=== PATIENT | female | born 1970 | race Caucasian/White ===

== ENCOUNTER 2017-05-09 08:03 | Emergency (ER) | payer MEDICAID ==
[~2017-05-09] VITALS: Ht 165.1 cm; Wt 65.5 kg
[~2017-05-09 08:03] MED LIST: AMO500 PO; CEPH-443 PO; CIPR-193 PO; MEDR10TA2 PO; PHEN-538 PO
[2017-05-09 08:07] VITALS: Ht 165.1 cm; Wt 65.5 kg
[2017-05-09 08:56] LABS: URINE BLOOD (Dip) POC 2+ (NEGATIVE)
--- NOTE | 2017-05-09 09:40 | ERD ---
ER Documentation Chief Complaint Date/Time DATE: 05/09/17 TIME: 09:39 Chief Complaint PAIN WITH URINATION, STARTED YESTURDAY HPI This a 47-year-old female who complains of burning and pain with urination that started yesterday. States she is taking AZO. Denies any hematuria, fevers or chills, back pain. ROS All systems reviewed and are negative except as per history of present illness. Medications Home Meds Active Scripts Acetaminophen* (Tylophen*) 500 Mg Capsule, 1 CAP PO Q6H Y for PAIN AND OR ELEVATED TEMP, #30 CAP Prov:LESLY ALICIA PA-C 05/09/17 Cephalexin* (Keflex*) 500 Mg Capsule, 500 MG PO QID for 7 Days, CAP Prov:LESLY ALICIA PA-C 05/09/17 Amoxicillin* (Amoxicillin*) 500 Mg Cap, 500 MG PO TID for 10 Days, CAP Prov:JOE PINEDA DO 11/13/16 Medroxyprogesterone Acetate* (Provera*) 10 Mg Tablet, 10 MG PO DAILY for 5 Days , TAB Prov:ALEKS MATA NP 08/08/16 Ciprofloxacin Hcl* (Ciprofloxacin Hcl*) 250 Mg Tablet, 250 MG PO BID for 3 Days , #6 TAB Prov:ALEKS MATA NP 08/08/16 Phenazopyridine Hcl* (Pyridium*) 200 Mg Tab, 200 MG PO TID Y for URINARY PAIN, # 6 TAB Prov:JCARLOS HENRY MD 08/02/16 Cephalexin* (Keflex*) 500 Mg Capsule, 500 MG PO QID for 5 Days, CAP Prov:JCARLOS HENRY MD 08/02/16 Allergies Allergies: Coded Allergies: No Known Allergy (Unverified , 02/25/15) PMhx/Soc Medical and Surgical Hx: pt denies Medical Hx History of Surgery: Yes (TUBAL CAUTERIZATION ) Anesthesia Reaction: No Hx Neurological Disorder: No Hx Respiratory Disorders: No Hx Cardiac Disorders: No Hx Psychiatric Problems: No Hx Miscellaneous Medical Probl: No Hx Alcohol Use: No Hx Substance Use: No Hx Tobacco Use: Yes (4 CIG/DAY) Smoking Status: Current every day smoker Physical Exam Vitals Vital Signs Date Time Temp Pulse Resp B/P Pulse Ox O2 Delivery O2 Flow Rate FiO2 6/19/17 08:07 98.2 76 16 111/53 98 Physical Exam Const: No acute distress Head: Atraumatic Eyes: Normal Conjunctiva ENT: Normal External Ears, Nose and Mouth. Neck: Full range of motion..~ No meningismus. Resp: Clear to auscultation bilaterally Cardio: Regular rate and rhythm, no murmurs Abd: Soft, suprapubic tenderness, non distended. Normal bowel sounds. No right lower quadrant pain. No left lower quadrant pain. Skin: No petechiae or rashes Back: No midline or flank tenderness. No CVA tenderness. Ext: No cyanosis, or edema Neur: Awake and alert Psych: Normal Mood and Affect Results 24 hrs Laboratory Tests Test 05/09/17 08:59 Bedside Urine pH (LAB) 5.0 Bedside Urine Protein (LAB) 2+ Bedside Urine Glucose (UA) 0.1% Bedside Urine Ketones (LAB) Negative Bedside Urine Blood 2+ Bedside Urine Nitrite (LAB) Positive Bedside Urine Leukocyte Esterase (L 3+ Procedures/MDM This 47-year-old female presents to the emergency department today complaining of burning and pain with urination that started yesterday. I did obtain a UA UA shows 3+ leukocyte Estrace 2+ blood and positive nitrite. Patient symptoms at this time is consistent with urinary tract infection. She is afebrile and otherwise well-appearing. She has no CVA tenderness. Low suspicion for pyelonephritis. Do not feel the patient requires further workup or imaging at this time. Patient will given a prescription for Keflex and Tylenol At this time the patient is stable for discharge and outpatient management. Patient should follow up with their PCP in the next 1-2 days. They may return to the emergency department sooner for any persistent or worsening of symptoms. Patient understood and agreed with the plan. Departure Diagnosis: Primary Impression: UTI (urinary tract infection) Urinary tract infection type: site unspecified Hematuria presence: with hematuria Qualified Code: N39.0 - Urinary tract infection with hematuria, site unspecified Condition: LESLY Garcia PA-C May 09, 2017 09:40
[2017-05-09] MEDS ORDERED: ACET500C5 PO (09:41)
[2017-05-09] MEDS ORDERED: CEPH-443 PO (09:41)
== END 2017-05-09 09:53 | disposition home or self-care (01) ==
LOC: FTE 08:03
DX: N39.0 Urinary tract infection, site not specified (principal); F17.210 Nicotine dependence, cigarettes, uncomplicated
CPT/HCPCS: 81003; Z7502; 99283

== ENCOUNTER 2017-05-20 09:58 | Emergency (ER) | payer MEDICAID ==
[~2017-05-20] VITALS: Wt 65.5 kg
[~2017-05-20 09:58] MED LIST changes: +ACET500C5 PO
[2017-05-20 11:43] LABS: ADD UMIC NO; UR ASCORBIC ACID 40 mg/dL (NEGATIVE); UR BILIRUBIN (Dip) NEGATIVE (NEGATIVE); UR BLOOD (Dip) NEGATIVE (NEGATIVE); UR CLARITY SLIGHTLY CLOUDY (CLEAR); UR COLOR YELLOW (YELLOW); UR GLUCOSE (Dip) NEGATIVE (NEGATIVE); UR KETONES (Dip) NEGATIVE (NEGATIVE); UR LEUKOCYTE ESTERASE (Dip) NEGATIVE Leu/ul (NEGATIVE); UR MUCUS FEW /HPF (NONE SEEN); UR NITRITE (Dip) NEGATIVE (NEGATIVE); UR RBC 1 /HPF (0-5); UR SPECIFIC GRAVITY (Dip) 1.026 (1.003-1.030); UR SQUAMOUS EPITHELIAL CELL FEW /HPF (FEW); UR TOTAL PROTEIN (Dip) NEGATIVE (NEGATIVE); UR UROBILINOGEN (Dip) NEGATIVE (NEGATIVE)
[2017-05-20] MEDS ORDERED: CIPR500T4 PO (11:48)
[2017-05-20] MEDS ORDERED: PHEN-537 PO (11:48)
--- NOTE | 2017-05-20 11:54 | ERD ---
ER Documentation Chief Complaint Date/Time DATE: 05/20/17 TIME: 11:52 Chief Complaint PAIN WITH URINATION HPI Patient is a 47-year-old female who presents with dysuria and increased urinary frequency for the past 5 days. She states she recently completed treatment with Keflex for a UTI and she last took a Keflex about 2 weeks ago. She denies any fever. Denies any nausea or vomiting or diarrhea. She denies any chest pain or shortness of breath. She denies any change with food. Denies any vaginal bleeding. ROS All systems reviewed and are negative except as per history of present illness. Medications Home Meds Active Scripts Phenazopyridine Hcl* (Pyridium*) 100 Mg Tab, 100 MG PO TID Y for URINARY PAIN, # 8 TAB Prov:DANIELA SEPULVEDA PA-C 05/20/17 Ciprofloxacin Hcl* (Ciprofloxacin Hcl*) 500 Mg Tablet, 500 MG PO BID for 7 Days , TAB Prov:DANIELA SEPULVEDA PA-C 05/20/17 Acetaminophen* (Tylophen*) 500 Mg Capsule, 1 CAP PO Q6H Y for PAIN AND OR ELEVATED TEMP, #30 CAP Prov:LESLY ALICIA PA-C 05/09/17 Cephalexin* (Keflex*) 500 Mg Capsule, 500 MG PO QID for 7 Days, CAP Prov:LESLY ALICIA PA-C 05/09/17 Amoxicillin* (Amoxicillin*) 500 Mg Cap, 500 MG PO TID for 10 Days, CAP Prov:OJE PINEDA DO 11/13/16 Medroxyprogesterone Acetate* (Provera*) 10 Mg Tablet, 10 MG PO DAILY for 5 Days , TAB Prov:ALEKS MATA NP 08/08/16 Ciprofloxacin Hcl* (Ciprofloxacin Hcl*) 250 Mg Tablet, 250 MG PO BID for 3 Days , #6 TAB Prov:ALEKS MATA NP 08/08/16 Phenazopyridine Hcl* (Pyridium*) 200 Mg Tab, 200 MG PO TID Y for URINARY PAIN, # 6 TAB Prov:JCARLOS HENRY MD 08/02/16 Cephalexin* (Keflex*) 500 Mg Capsule, 500 MG PO QID for 5 Days, CAP Prov:JCARLOS HENRY MD 08/02/16 Allergies Allergies: Coded Allergies: No Known Allergy (Unverified , 02/25/15) PMhx/Soc History of Surgery: Yes (TUBAL CAUTERIZATION ) Anesthesia Reaction: No Hx Neurological Disorder: No Hx Respiratory Disorders: No Hx Cardiac Disorders: No Hx Psychiatric Problems: No Hx Miscellaneous Medical Probl: No Hx Alcohol Use: No Hx Substance Use: No Hx Tobacco Use: Yes (4 CIG/DAY) Smoking Status: Current every day smoker FmHx Family History: No diabetes Physical Exam Vitals Vital Signs Date Time Temp Pulse Resp B/P Pulse Ox O2 Delivery O2 Flow Rate FiO2 05/20/17 10:01 97.5 68 17 114/56 99 Physical Exam General: well developed, well nourished, alert, nontoxic, no distress Head: normocephalic, atraumatic Neck: Supple, nontender, no lymphadenopathy, no midline tenderness Respiratory: Clear to auscaultation bilaterally, speaks in full sentences, no use of accesory muscles or labored breathing, no rales, ronchi, or wheezing Cardiovascular: RRR, No murmurs GI: soft, non tender, non distended, negative murphys sign, negative mcburneys point tenderness, no cva tenderness bilaterally, no rebound or guarding Back: no midline tenderness, no step offs or bony abnormalities, sensation to light touch in tact Results 24 hrs Laboratory Tests Test 05/20/17 10:28 Urine Color YELLOW Urine Clarity SLIGHTLY CLOUDY Urine pH 6.0 Urine Specific [place] 1.026 Urine Ketones NEGATIVEmg/dL Urine Nitrite NEGATIVEmg/dL Urine Bilirubin NEGATIVEmg/dL Urine Urobilinogen NEGATIVEmg/dL Urine Leukocyte Esterase NEGATIVELeu/ul Urine Microscopic RBC 1/HPF Urine Microscopic WBC 2/HPF Urine Squamous Epithelial Cells FEW/HPF Urine Calcium Oxalate Crystals MANY/HPF Urine Mucus FEW/HPF Urine Hemoglobin NEGATIVEmg/dL Urine Glucose NEGATIVEmg/dL Urine Total Protein NEGATIVEmg/dl Procedures/MDM Patient has symptoms consistent with urinary tract infection. I doubt pyelonephritis or kidney stones. She is well-appearing in no distress. Her urine was sent for culture. She recently had a UTI was treated with Keflex but is unclear whether he got better or still the same UTI this did not completely improve and therefore I will put her on Cipro and I also gave her Pyridium. Recommended this patient follow up with her primary care doctor within 48 hours or return to the emergency room for any worsening of symptoms. However this time I do believe there is suitable for outpatient management. I answered all their questions and they agreed with the plan and were discharged home. Departure Diagnosis: Primary Impression: Dysuria Condition: Stable Patient Instructions: Dysuria Additional Instructions: Call your primary care doctor TOMORROW for an appointment during the next 1-2 days.See the doctor sooner or return here if your condition worsens before your appointment time. DANIELA SEPULVEDA PA-C May 20, 2017 11:54
== END 2017-05-20 12:04 | disposition home or self-care (01) ==
LOC: FTE 09:58
DX: R30.0 Dysuria (principal); F17.210 Nicotine dependence, cigarettes, uncomplicated
CPT/HCPCS: 81001; 87086; Z7502; 81003; 99283

== ENCOUNTER 2017-05-23 12:21 | Emergency (ER) | payer MEDICAID ==
[~2017-05-23] VITALS: Ht 157.5 cm; Wt 67.0 kg
[~2017-05-23 12:21] MED LIST changes: +CIPR500T4 PO; +PHEN-537 PO
[2017-05-23 12:32] VITALS: Ht 157.5 cm; Wt 67.0 kg
[2017-05-23 14:06] LABS: ADD UMIC YES; UR ASCORBIC ACID NEGATIVE (NEGATIVE); UR BILIRUBIN (Dip) NEGATIVE (NEGATIVE); UR BLOOD (Dip) 1+ mg/dL (NEGATIVE); UR CLARITY CLEAR (CLEAR); UR COLOR YELLOW (YELLOW); UR GLUCOSE (Dip) NEGATIVE (NEGATIVE); UR KETONES (Dip) NEGATIVE (NEGATIVE); UR LEUKOCYTE ESTERASE (Dip) NEGATIVE Leu/ul (NEGATIVE); UR NITRITE (Dip) NEGATIVE (NEGATIVE); UR RBC 0 /HPF (0-5); UR SPECIFIC GRAVITY (Dip) 1.005 (1.003-1.030); UR TOTAL PROTEIN (Dip) NEGATIVE (NEGATIVE); UR UROBILINOGEN (Dip) NEGATIVE (NEGATIVE)
--- NOTE | 2017-05-23 14:35 | RADRPT ---
PROCEDURE: US Pelvis CLINICAL INDICATION: pelvic pain TECHNIQUE: Multiple sonographic images of the pelvis were obtained utilizing a transabdominal and endovaginal technique. The images were reviewed on a PACS workstation. COMPARISON: None. FINDINGS: The uterus measures 6.9 x 3.7 x 4.6 cm. The endometrial echo complex measures 6 mm in thickness. There is a 1.3 cm posterior intramural fibroid at the level of the upper body. A 9 mm intramural fi broid is identified at the same level, to the right of midline. The right ovary measures 2.1 x 0.9 x 1.6 cm. The left ovary measures this 2.8 x 1.1 x 1.4 cm. There is normal vascular flow in both ovaries. No significant ovarian lesions are seen. No significant pelvic free fluid is identified. IMPRESSION: 2 uterine fibroids are identified measuring up to 1.3 cm. Bilateral ovaries and adnexa are unremarkable. RPTAT: EE Physician Marla Date Time Electronically viewed and signed by Physician Marla on 05/23/2017 14:35 /
[2017-05-23] MEDS ORDERED: METR500T PO (15:01)
[2017-05-23] MEDS ORDERED: IBUP-1542 PO (15:02)
[2017-05-23 15:15] VITALS: BP 132/79; PULSE 64; RESP 16; TEMP 97
--- NOTE | 2017-05-23 15:29 | ERD ---
ER Documentation Chief Complaint Date/Time DATE: 05/23/17 TIME: 15:26 Chief Complaint painful urination with pelvic pain x 2 weeks HPI This is a 47-year-old female presents to the ER with pelvic pain over the last 2 weeks. Patient states that she feels urinary discomfort however denies urinary frequency. Patient was on Keflex and then came to the ER on Tuesday and was started on Cipro. Patient states that these antibiotics have not helped her. Patient denies any hematuria. She denies any vaginal discharge. She and is currently sexually active with her only. She denies any fevers or chills. She denies any back pain or flank pain ROS 12 point review of systems was done, all negative except per HPI. Medications Home Meds Active Scripts Ibuprofen* (Motrin*) 600 Mg Tab, 600 MG PO Q6, #30 TAB Prov:ROBERTO JEFFERSON 05/23/17 Metronidazole* (Flagyl*) 500 Mg Tablet, 500 MG PO TID for 7 Days, TAB Prov:ROBERTO JEFFERSON 05/23/17 Phenazopyridine Hcl* (Pyridium*) 100 Mg Tab, 100 MG PO TID Y for URINARY PAIN, # 8 TAB Prov:DANIELA SEPULVEDA PA-C 05/20/17 Ciprofloxacin Hcl* (Ciprofloxacin Hcl*) 500 Mg Tablet, 500 MG PO BID for 7 Days , TAB Prov:DANIELA SEPULVEDA PA-C 05/20/17 Acetaminophen* (Tylophen*) 500 Mg Capsule, 1 CAP PO Q6H Y for PAIN AND OR ELEVATED TEMP, #30 CAP Prov:LESLY ALICIAC 05/09/17 Cephalexin* (Keflex*) 500 Mg Capsule, 500 MG PO QID for 7 Days, CAP Prov:LESLY ALICIA-C 05/09/17 Amoxicillin* (Amoxicillin*) 500 Mg Cap, 500 MG PO TID for 10 Days, CAP Prov:JOE PINEDA DO 11/13/16 Medroxyprogesterone Acetate* (Provera*) 10 Mg Tablet, 10 MG PO DAILY for 5 Days , TAB Prov:ALEKS MATA NP 08/08/16 Ciprofloxacin Hcl* (Ciprofloxacin Hcl*) 250 Mg Tablet, 250 MG PO BID for 3 Days , #6 TAB Prov:ALEKS MATA NP 08/08/16 Phenazopyridine Hcl* (Pyridium*) 200 Mg Tab, 200 MG PO TID Y for URINARY PAIN, # 6 TAB Prov:JCARLOS HENRY MD 08/02/16 Cephalexin* (Keflex*) 500 Mg Capsule, 500 MG PO QID for 5 Days, CAP Prov:JCARLOS HENRY MD 08/02/16 Allergies Allergies: Coded Allergies: No Known Allergy (Unverified , 02/25/15) PMhx/Soc History of Surgery: Yes (TUBAL CAUTERIZATION ) Anesthesia Reaction: No Hx Neurological Disorder: No Hx Respiratory Disorders: No Hx Cardiac Disorders: No Hx Psychiatric Problems: No Hx Miscellaneous Medical Probl: No Hx Alcohol Use: No Hx Substance Use: No Hx Tobacco Use: Yes (4 CIG/DAY) Smoking Status: Never smoker Physical Exam Vitals Physical Exam GENERAL: The patient is well developed and appropriate for usual state of health , in no apparent distress. HEENT: Atraumatic CHEST: Clear to auscultation bilaterally. There are no rales, wheezes or rhonchi. HEART: Regular rate and rhythm. No murmurs, clicks, rubs or gallops. ABDOMEN: Soft, nontender and nondistended. Good bowel sounds. No rebound or guarding. No gross peritonitis. No gross organomegaly or masses. No Kern sign or McBurney point tenderness. Patient is tender to palpation over the pelvic area. BACK: No midline or flank tenderness. NEURO: Alert and oriented. Results 24 hrs Laboratory Tests Test 05/23/17 13:30 Urine Color YELLOW Urine Clarity CLEAR Urine pH 5.0 Urine Specific [place] 1.005 Urine Ketones NEGATIVEmg/dL Urine Nitrite NEGATIVEmg/dL Urine Bilirubin NEGATIVEmg/dL Urine Urobilinogen NEGATIVEmg/dL Urine Leukocyte Esterase NEGATIVELeu/ul Urine Microscopic RBC 0/HPF Urine Microscopic WBC 0/HPF Urine Hemoglobin 1+mg/dL Urine Glucose NEGATIVEmg/dL Urine Total Protein NEGATIVEmg/dl Procedures/MDM This is a 47-year-old female presents to the ER with urinary discomfort and pelvic pain. Patient was seen in the ER on Tuesday and diagnosed with urinary tract infection and treated with Cipro. There was no evidence of urinary tract infection on urinalysis on Tuesday and there is no evidence of urinary tract infection today. Patient was found to have possible bacterial vaginosis on last urine culture she will be treated with metronidazole. Pelvic ultrasound was ordered and it was positive for fibroids is likely the cause of her pelvic pain. Patient is to follow-up with her primary care doctor within 1-2 days return to ER sooner if symptoms worsen. My medical decision making shared with the patient she understands and agrees with plan. Departure Diagnosis: Primary Impression: Fibroid Additional Impression: Bacterial vaginosis Condition: Stable Patient Instructions: What Are Fibroids?, Vaginal Infection: Bacterial Vaginosis Additional Instructions: Llame al doctor CECILIO y shalom lobo MEREDITH PARA DENTRO DE 1-2 MORRISSEY.Dgale a la secretaria que nosotros le instruimos hacer esta meredith.Avise o llame si richardson condicin se empeora antes de la meredith. Regresa aqui si peor o no mejor. ROBERTO JEFFERSON May 23, 2017 15:29 Vaginosis Additional Instructions: Llame al doctor CECILIO y shalom lobo MEREDITH PARA DENTRO DE 1-2 MORRISSEY.Dgale a la secretaria que nosotros le instruimos hacer esta meredith.Avise o llame si richardson condicin se empeora antes de la meredith. Regresa aqui si peor o no mejor. ROBERTO JEFFERSON May 23, 2017 15:29
== END 2017-05-23 15:17 | disposition home or self-care (01) ==
LOC: FTE 12:21
DX: D25.9 Leiomyoma of uterus, unspecified (principal); N76.0 Acute vaginitis; F17.210 Nicotine dependence, cigarettes, uncomplicated
CPT/HCPCS: 76830; 76856; 81001

== ENCOUNTER 2017-10-10 10:20 | Emergency (ER) | payer MEDICAID ==
[~2017-10-10] VITALS: Ht 160 cm; Wt 68.8 kg
[~2017-10-10 10:20] MED LIST changes: -AMO500 PO; +AMOX500C2 PO; +IBUP-1542 PO; +METR500T PO
[2017-10-10 10:26] VITALS: Ht 160 cm; Wt 68.8 kg
--- NOTE | 2017-10-10 10:53 | ERD ---
ER Documentation Chief Complaint Chief Complaint PAINFUL URINATION SINCE YESTERDAY HPI 27-year-old female presents with painful urination described as burning, and urgency starting yesterday. She describes frequent urination with burning pain , and the urgency as well. She denies any fevers chills, nausea, vomiting, hematuria flank pain. She reports some suprapubic discomfort associated with this. ROS All systems reviewed and are negative except as per history of present illness. Medications Home Meds Active Scripts Ibuprofen* (Motrin*) 600 Mg Tab, 600 MG PO Q6, #30 TAB Prov:SCOTT MEDINA PA-C 10/10/17 Phenazopyridine Hcl* (Pyridium*) 100 Mg Tab, 100 MG PO TID, #10 TAB Prov:SCOTT MEDINA PA-C 10/10/17 Cephalexin* (Keflex*) 500 Mg Capsule, 500 MG PO TID for 7 Days, CAP Prov:SCOTT MEDINA PA-C 10/10/17 Ibuprofen* (Motrin*) 600 Mg Tab, 600 MG PO Q6, #30 TAB Prov:ROBERTO JEFFERSON 05/23/17 Metronidazole* (Flagyl*) 500 Mg Tablet, 500 MG PO TID for 7 Days, TAB Prov:ROBERTO JEFFERSON 05/23/17 Phenazopyridine Hcl* (Pyridium*) 100 Mg Tab, 100 MG PO TID Y for URINARY PAIN, # 8 TAB Prov:DANIELA SEPULVEDA PA-C 05/20/17 Ciprofloxacin Hcl* (Ciprofloxacin Hcl*) 500 Mg Tablet, 500 MG PO BID for 7 Days , TAB Prov:DANIELA SEPULVEDA PA-C 05/20/17 Acetaminophen* (Tylophen*) 500 Mg Capsule, 1 CAP PO Q6H Y for PAIN AND OR ELEVATED TEMP, #30 CAP Prov:LESLY ALICIAC 05/09/17 Cephalexin* (Keflex*) 500 Mg Capsule, 500 MG PO QID for 7 Days, CAP Prov:LESLY ALICIAC 05/09/17 Amoxicillin* (Amoxicillin*) 500 Mg Cap, 500 MG PO TID for 10 Days, CAP Prov:JOE PINEDA DO 11/13/16 Medroxyprogesterone Acetate* (Provera*) 10 Mg Tablet, 10 MG PO DAILY for 5 Days , TAB Prov:ALEKS MATA NP 08/08/16 Ciprofloxacin Hcl* (Ciprofloxacin Hcl*) 250 Mg Tablet, 250 MG PO BID for 3 Days , #6 TAB Prov:ALEKS MATAOd[place] RAMÍREZ 08/08/16 Phenazopyridine Hcl* (Pyridium*) 200 Mg Tab, 200 MG PO TID Y for URINARY PAIN, # 6 TAB Prov:JCARLOS HENRY MD 08/02/16 Cephalexin* (Keflex*) 500 Mg Capsule, 500 MG PO QID for 5 Days, CAP Prov:JCARLOS HENRY MD 08/02/16 Allergies Allergies: Coded Allergies: No Known Allergy (Unverified , 02/25/15) PMhx/Soc History of Surgery: Yes (TUBAL CAUTERIZATION ) Anesthesia Reaction: No Hx Neurological Disorder: No Hx Respiratory Disorders: No Hx Cardiac Disorders: No Hx Psychiatric Problems: No Hx Miscellaneous Medical Probl: No Hx Alcohol Use: No Hx Substance Use: No Hx Tobacco Use: Yes (4 CIG/DAY) Physical Exam Vitals Vital Signs Date Time Temp Pulse Resp B/P Pulse Ox O2 Delivery O2 Flow Rate FiO2 10/10/17 10:26 98.1 86 20 138/79 98 Physical Exam General: Well-developed, well-nourished. The patient appears in no acute distress. HEENT: Head is normocephalic, atraumatic. No scleral icterus. Neck: Supple. Nontender. Lungs: Clear to auscultation. Normal air movement. Heart: Regular rate and rhythm. S1 and S2 are normal. No murmurs, gallops, or rubs. Abdomen: Soft, nontender, nondistended. Bowel sounds are normoactive. No CVA tenderness Extremities: No clubbing or cyanosis. Normal pulses. Moving extremities x 4. No weakness. Neurologic: Alert and oriented 3. No focal deficits. Skin: Normal turgor. No rash or lesions. Results 24 hrs Laboratory Tests Test 10/10/17 10:45 Urine Color ANYA Urine Clarity CLEAR Urine pH 6.0 Urine Specific [place] 1.002 Urine Ketones NEGATIVEmg/dL Urine Nitrite POSITIVEmg/dL Urine Bilirubin NEGATIVEmg/dL Urine Urobilinogen NEGATIVEmg/dL Urine Leukocyte Esterase 1+Agustín/ul Urine Microscopic RBC 3/HPF Urine Microscopic WBC 69/HPF Urine Bacteria FEW/HPF Urine Hemoglobin 2+mg/dL Urine Glucose NEGATIVEmg/dL Urine Total Protein NEGATIVEmg/dl Urine Test NEGATIVE Current Medications Medications (Trade) Dose Ordered Sig/Inocencio Route PRN Reason Start Time Stop Time Status Last Admin Dose Admin Phenazopyridine HCl (Pyridium) 100 mg ONCE ONCE PO 10/10/17 11:30 10/10/17 11:31 DC Cephalexin (Keflex) 500 mg ONCE ONCE PO 10/10/17 11:30 10/10/17 11:31 DC Procedures/MDM 37-year-old female comes in with symptoms of a urinary tract infection, with positive nitrite urine. She will be treated for UTI with Keflex and Macrobid. She does not have any clinical signs or symptoms for pyelonephritis, kidney stones, sepsis she is given her first dose of Keflex and Pyridium will be discharged home. Departure Diagnosis: Primary Impression: UTI (urinary tract infection) Condition: SCOTT Osborn PA-C Oct 10, 2017 10:53
[2017-10-10 11:19] LABS: ADD UMIC YES; UR ASCORBIC ACID NEGATIVE (NEGATIVE); UR BACTERIA FEW /HPF (NONE SEEN); UR BILIRUBIN (Dip) NEGATIVE (NEGATIVE); UR BLOOD (Dip) 2+ mg/dL (NEGATIVE); UR CLARITY CLEAR (CLEAR); UR COLOR AMBER (YELLOW); UR GLUCOSE (Dip) NEGATIVE (NEGATIVE); UR KETONES (Dip) NEGATIVE (NEGATIVE); UR LEUKOCYTE ESTERASE (Dip) 1+ Leu/ul (NEGATIVE); UR NITRITE (Dip) POSITIVE (NEGATIVE); UR RBC 3 /HPF (0-5); UR SPECIFIC GRAVITY (Dip) 1.002 (1.003-1.030); UR TOTAL PROTEIN (Dip) NEGATIVE (NEGATIVE); UR UROBILINOGEN (Dip) NEGATIVE (NEGATIVE)
[2017-10-10] MEDS ORDERED: PHEN-537 PO (11:28)
[2017-10-10] MEDS ORDERED: IBUP-1542 PO (11:28)
[2017-10-10] MEDS ORDERED: CEPH-443 PO (11:28)
[2017-10-10] MEDS ORDERED: CEPHALEXIN 500 MG CAP PO ONE (11:30)
[2017-10-10] MEDS ORDERED: PHENAZOPYRIDINE 100 MG TAB PO ONE (11:30)
== END 2017-10-10 11:48 | disposition home or self-care (01) ==
LOC: FTE 10:20
DX: N39.0 Urinary tract infection, site not specified (principal); Z87.891 Personal history of nicotine dependence
CPT/HCPCS: 81001; 84703; Z7502; Z7610; 99283

== ENCOUNTER 2017-12-03 07:25 | Observation (INO) | END 2017-12-03 10:13 | disposition home or self-care (01) ==

== ENCOUNTER 2018-01-05 08:46 | Emergency (ER) | END 2018-01-05 10:57 | disposition home or self-care (01) ==

== ENCOUNTER 2018-11-06 15:21 | Emergency (ER) | END 2018-11-06 19:56 | disposition home or self-care (01) ==

== ENCOUNTER 2019-09-18 11:05 | Emergency (ER) | payer MEDICAID ==
[~2019-09-18] VITALS: Wt 75.0 kg
[~2019-09-18 11:05] MED LIST changes: +ACET325T33 PO; -AMOX500C2 PO; +BACL10TA PO; -CEPH-443 PO; -CIPR-193 PO; -CIPR500T4 PO; +IBUP-1561 PO; -MEDR10TA2 PO; -METR500T PO; -PHEN-537 PO; +TRAM50TA2 PO
[2019-09-18] MEDS ORDERED: KETOROLAC 30 MG INJ IM STA (12:03)
== END 2019-09-18 12:34 | disposition home or self-care (01) ==
LOC: FTE 11:05
DX: M25.561 Pain in right knee (principal); Z87.891 Personal history of nicotine dependence
CPT/HCPCS: 81003; 81025; 96372; J1885; Z7502